=== PATIENT | male | born 1960 | race Caucasian/White ===

== ENCOUNTER 2017-03-07 11:51 | Inpatient (IN) | payer OTHER ==
[~2017-03-07] VITALS: Ht 172.7 cm; Wt 77.1 kg
[~2017-03-07 11:51] MED LIST: AMIODARONE200 MG PO; CARDIZEM CD 12120 MG PO; CORDARONE 200M200 MG PO; ECOTRIN81 MG PO; ELIQUIS5 MG PO
--- NOTE | 2017-03-07 12:02 | NUR ---
PT TO ED WITH C/O SUDDEN ONSET OF NAUSEA, SWEATING, RAPID HEART RATE WHILE EATING BREAKFAST. HX AFIB. HEART RATE 168 ON ARRIVAL TO ROOM. DENIES PAIN, C/O ANXIETY FEELING. DR POMPA IN TO [facility] UPON ARRIVAL TO ED.
--- NOTE | 2017-03-07 12:09 | ED CARDIAC/CP/PALPITATIONS ---
History of Present Illness General Chief Complaint: Chest Pain Stated Complaint: CHEST DISCOMFORT Source: patient Exam Limitations: no limitations Vital Signs & Intake/Output Vital Signs & Intake/Output Vital Signs Date Time Temp Pulse Resp B/P B/P Pulse O2 O2 Flow FiO2 Mean Ox Delivery Rate 03/07 1519 98.2 122 19 143/4 96 Room Air 03/07 1447 97.0 112 142/93 03/07 1300 112 150/74 03/07 1225 96 20 175/114 03/07 1205 96 20 175/114 96 Room Air Room Air Allergies Coded Allergies: meperidine (From DEMEROL) (Intermediate, VOMITING 03/07/17) Reconcile Medications Aspirin (Aspirin*) 81 MG TAB.CHEW 1 TAB PO DAILY HEART HEALTH (Reported) Diltiazem HCl (Diltiazem 24HR ER) 120 MG CAP.ER.24H 1 CAP PO DAILY HEART ( Reported) Triage Note: PT TO ED WITH C/O SUDDEN ONSET OF NAUSEA, SWEATING, RAPID HEART RATE WHILE EATING BREAKFAST. HX AFIB. Triage Nurses Notes Reviewed? yes Onset: Morning Duration: hour(s):, constant, continues in ED Quality/Severity: severe, RAPID HR Location: central HPI: Patient presents for evaluation of an onset of heart palpitations that began abruptly this morning. Patient has a prior history of atrial fibrillation and is currently taking diltiazem. He took an extra dose of the diltiazem trying to avoid coming to the hospital. He became sweaty prior to arrival and he was concerned about having another syncopal episode (he had one during his last episode of atrial fibrillation) and came to the emergency department. Past History Travel History Traveled to [place] past 21 day No Medical History Any Pertinent Medical History? 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 No Review of Systems Review of Systems Constitutional: Reports: no symptoms. EENTM: Reports: no symptoms. Respiratory: Reports: no symptoms. Cardiovascular: Reports: see HPI. GI: Reports: no symptoms. Genitourinary: Reports: no symptoms. Musculoskeletal: Reports: no symptoms. Skin: Reports: no symptoms. Neurological/Psychological: Reports: no symptoms. Hematologic/Endocrine: Reports: no symptoms. Immunologic/Allergic: Reports: no symptoms. All Other Systems: Reviewed and Negative Physical Exam Physical Exam Cardiovascular: SEE BELOW Comments: Gen.: Well-nourished, well-developed, no acute respiratory distress. Head: Normocephalic, atraumatic. Eyes: Normal inspection bilaterally Ears: Normal inspection bilaterally Nose: Normal inspection Throat/mouth : Moist mucosa Neck: Supple, full range of motion, no goiter Heart: Rapid and IRRegular rate and rhythm, no murmurs rubs or gallops Lungs: Clear to auscultation bilaterally with normal air entry Chest: Nontender Back: Normal range of motion Abdomen: Soft, nontender, nondistended, normal bowel sounds Extremities: Normal range of motion grossly, equal radial pulses, no cyanosis clubbing or edema Neurologic: Cranial nerves grossly intact, speech is clear Skin: warm and dry Psychiatric: Calm, cooperative, no apparent delusions or hallucinations Core Measures ACS in differential dx? Yes Severe Sepsis Present: No Septic Shock Present: No Progress Differential Diagnosis: CONDUCTION DISTURBANCE, VALVE DISEASE, HYPERTHYROIDISM, ELECTROLYTE ABNORMALITY, HOLIDAY HEART SYNDROME Plan of Care: Orders Procedure Date/time Status Admit to inpatient 03/07 1524 Active Add-on Test (ER Only) 03/07 1209 Active TROPONIN LEVEL 03/07 1153 Complete PROTHROMBIN TIME 03/07 1153 Complete MAGNESIUM 03/07 1153 Complete LIPID PANEL 03/07 1153 Complete ETHANOL 03/07 1153 Complete COMPREHENSIVE METABOLIC PANEL 03/07 1153 Complete CBC WITHOUT DIFFERENTIAL 03/07 1153 Complete EKG 03/07 1153 Active Current Medications Sig/Latrell Start time Last Medication Dose Stop Time Status Admin Diltiazem HCl 125 MG ONCE ONE 03/07 1215 AC 03/07 (Cardizem DRIP) 03/08 0044 1225 Sodium Chloride 100 ML (Normal Saline 0.9%) Laboratory Tests 03/07/17 1153: Anion Gap 8, Estimated GFR > 60, BUN/Creatinine Ratio 10.0, Glucose 153 H, Calcium 9.4, Magnesium 2.0, Total Bilirubin 1.1, AST 26, ALT 38, Alkaline Phosphatase 72, Troponin I < 0.01, Total Protein 6.4, Albumin 4.1, Globulin 2.3, Albumin/Globulin Ratio 1.8, Triglycerides 152 H, Cholesterol 226 H, LDL Cholesterol, Calc 131 H, HDL Cholesterol 65 H, Cholesterol/HDL Ratio 3, PT 10.5, INR 1.00, CBC w Diff NO MAN DIFF REQ, RBC 5.03, MCV 92.9, MCH 31.8 H, RDW 13.8, MPV 7.7, Gran % 59.8, Lymphocytes % 33.4, Monocytes % 5.5, Eosinophils % 0.8, Basophils % 0.5, Absolute Granulocytes 4.5, Absolute Lymphocytes 2.5, Absolute Monocytes 0.4, Absolute Eosinophils 0.1, Absolute Basophils 0, PUBS MCHC 34.2, Serum Alcohol < 10.0 Initial ED EKG: RAPID ATRIAL FIBRILLATION WITH HEART RATE IN THE 170'S Rhythm Strip: RAPID ATRIAL FIBRILLATION Comments: 03/07/2017 1:54:49 PM patient's heart rate improving after IV diltiazem. Patient 's case discussed with Dr. Coronel who feels the patient doesn't require acute anticoagulation. He will see this patient shortly. 03/07/2017 3:29:57 PM patient has been evaluated by Dr. Coronel and will be admitted to telemetry. Departure Departure Disposition: STILL A PATIENT Condition: Stable Clinical Impression Primary Impression: Rapid atrial fibrillation Referrals: ADE BASURTO MD (PCP/Family) Departure Forms: Customer Survey General Discharge Information Admission Note Spoke With: Jorge CORONEL MD Documentation of Exam: Documentation of any treatments & extenuating circumstances including Concerns Regarding Discharge (functional status, medication knowledge or non-compliance, living conditions, etc.) that warrant an admission rather than observation: Patient presents in a paroxysm rapid atrial fibrillation. He is typically in a normal sinus rhythm (he has had a previous episode of rapid atrial fibrillation) and is not anticoagulated currently. He is now on a Cardizem drip to control his excessively high heart rate. He needs continuous cardiac monitoring, possibility of tachycardia and subsequent hypotension. He requires continuation of the Cardizem drip along with clinical monitoring of physical examination and vital signs. He does not convert back to sinus rhythm within 24 hours he should be anticoagulated. His medications will require adjustment. Echocardiogram should be considered. I feel he'll require a multiple day hospitalization. Critical Care Note Critical Care Note Critical Care Time: 30-74 min
[2017-03-07 12:18] LABS: ABSOLUTE BASOPHIL COUNT 0 /CUMM (0.0-0.2); ABSOLUTE EOSINOPHIL COUNT 0.1 /CUMM (0.0-0.7); ABSOLUTE GRANULOCYTE CT 4.5 /CUMM (1.4-6.5); ABSOLUTE LYMPH COUNT 2.5 /CUMM (1.2-3.4); ABSOLUTE MONOCYTE COUNT 0.4 /CUMM (0.10-0.60); BASOPHIL % 0.5 % (0.0-2.0); EOSINOPHIL % 0.8 % (0-5); GRANULOCYTE % 59.8 % (42.2-75.2); HEMATOCRIT 46.7 % (42-52); MEAN CORPUSCULAR HGB 31.8 PG (27.0-31.0); MEAN CORPUSCULAR HGB CONC 34.2 G/DL (33.0-37.0); MEAN CORPUSCULAR VOLUME 92.9 FL (80.0-94.0); MEAN PLATELET VOLUME 7.7 FL (7.4-10.4); PLATELET COUNT 292 /CUMM (130-400); RBC DISTRIBUTION WIDTH 13.8 % (11.5-14.5); RED BLOOD CELL CT 5.03 /CUMM (4.70-6.10); WHITE BLOOD CELL COUNT 7.5 /CUMM (4.8-10.8)
[2017-03-07 12:26] LABS: PT 10.5 SEC (9.4-12.5)
[2017-03-07] MEDS ORDERED: ASPIRIN81 M4 PO (12:57)
[2017-03-07] MEDS ORDERED: DILTIAZEM 24HR120 MG PO (12:57)
--- NOTE | 2017-03-07 16:57 | NUR ---
PT PROVIDED DINNER TRAY. CHEMISTRY PHYSICS TEACHER IN TO ASSESS [PT.NAD NOTED. HR IRREG 94-106BPM. IV CARDIZEM DRIP CONTIUES AT 10/HR.
--- NOTE | 2017-03-07 17:37 | History & Physical ---
General Information and HPI MD Statement: I have seen and personally examined BARTOLO PLASCENCIA and documented this H&P. The patient is a 57 year old M who presented with a patient stated chief complaint of racing of heart. Source of Information: patient, family Exam Limitations: no limitations History of Present Illness: This is a 57-year-old male with past medical history significant for paroxysmal atrial fibrillation ON CARDIZEM and not on anticoagulants presented to [facility] emergency department this afternoon with chief complaint of palpitations since morning. Patient presents for evaluation of onset of heart palpitations that began abruptly this morning. Patient has a prior history of atrial fibrillation and is currently taking diltiazem. He took an extra dose of the diltiazem trying to avoid coming to the hospital. He became sweaty prior to arrival and he was concerned about having another syncopal episode (he had one during his last episode of atrial fibrillation) and came to the emergency department. Patient reports being nauseous and sweaty during this episode. Denies any chest pain, short of breath. Denies any dizziness, lightheadedness, syncopal attack. Patient was diagnosed with atrial fibrillation in November 2014. He was found to be in paroxysmal atrial fibrillation, started on Cardizem drip after which his rhythm came to normal. He was discharged on Cardizem 120 mg and baby aspirin. He was never on anticoagulants. Nuclear stress test and echocardiogram were normal. He follows Dr. Sourav kaur as an outpatient Denies any shortness of breath, fever, chills, chest pain, headache, weakness or sensory changes, numbness or tingling sensation, nausea, vomiting, abdominal pain, change in bladder or bowel habits. Quit smoking and year echo. One pack per day for 50 years. Alcoholic 6 beers every day Denies illicit drug abuse Last echocardiogram-October 2014- Left ventricular cavity size normal. Left ventricular wall thickness mildly increased. No obvious regional wall motion abnormalities. Left ventricular ejection fraction is estimated at 55 %. Normal right ventricular size and function. Mild left atrial dilatation. Lipomatous hypertrophy of the interatrial septum. No pericardial effusion. Allergies/Medications Allergies: Coded Allergies: meperidine (From DEMEROL) (Intermediate, VOMITING 03/07/17) Home Med list Aspirin (Aspirin*) 81 MG TAB.CHEW 1 TAB PO DAILY HEART HEALTH (Reported) Diltiazem HCl (Diltiazem 24HR ER) 120 MG CAP.ER.24H 1 CAP PO DAILY HEART ( Reported) Compliance With Home Meds: GOOD Past History Travel History Traveled to [place] past 21 day No Medical History Neurological: dizziness EENT: NONE Cardiovascular: AFIB Respiratory: NONE Gastrointestinal: NONE Hepatic: NONE Renal: NONE Musculoskeletal: NONE Psychiatric: NONE Endocrine: NONE Blood Disorders: NONE Cancer(s): NONE 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 EENTM: Denies: blurred vision, double vision. Cardiovascular: Reports: palpitations. Denies: chest pain, edema, orthopena, peripheral edema, syncope. Respiratory: Denies: cough, hemoptysis, orthopnea, short of breath, sputum production, stridor, wheezing. GI: Denies: abdominal pain, bloating, constipation, diarrhea, bloody stool, changes in stool, vomiting. Genitourinary: Denies: dysuria, frequency, hematuria, hesitation. Musculoskeletal: Denies: back pain, gout, joint pain. Neurological/Psychological: Denies: anxiety, ataxia, confusion, depressed, dementia, emotional problems, numbness, paresthesia. Exam & Diagnostic Data Last 24 Hrs of Vital Signs/I&O Vital Signs Date Time Temp Pulse Resp B/P B/P Pulse O2 O2 Flow FiO2 Mean Ox Delivery Rate 03/07 1545 98.4 103 18 141/72 97 Room Air 03/07 1519 98.2 122 19 143/64 96 Room Air 03/07 1447 97.0 112 142/93 03/07 1300 112 150/74 03/07 1225 96 20 175/114 03/07 1205 96 20 175/114 96 Room Air Room Air Intake & Output 03/07 1600 03/07 0800 03/07 0000 Intake Total 1000 Output Total 800 Balance 200 Intake, IV 1000 Output, Urine 800 Patient 77.111 kg Weight Weight Reported by Patient Measurement Method Physical Exam General Appearance Alert, Oriented X3, Cooperative, No Acute Distress Skin No Rashes, No Breakdown HEENT Atraumatic, PERRLA, EOMI, Mucous Membr. moist/pink Neck Supple, No JVD, No thryomegaly Lymphatic Cervical nl Cardiovascular Normal S1, Normal S2, irregular Lungs Normal Air Movement Abdomen Normal Bowel Sounds, Soft, No Tenderness Neurological Strength at 5/5 X4 Ext, Normal Tone, Sensation Intact, Cranial Nerves 3-12 NL Extremities No Clubbing, No Cyanosis, No Edema Last 24 Hrs of Labs/Mart: Laboratory Tests 03/07/17 1153: Anion Gap 8, Estimated GFR > 60, BUN/Creatinine Ratio 10.0, Glucose 153 H, Calcium 9.4, Phosphorus 2.4 L, Magnesium 2.0, Total Bilirubin 1.1, AST 26, ALT 38, Alkaline Phosphatase 72, Troponin I < 0.01, Total Protein 6.4, Albumin 4.1, Globulin 2.3, Albumin/Globulin Ratio 1.8, Triglycerides 152 H, Cholesterol 226 H, LDL Cholesterol, Calc 131 H, HDL Cholesterol 65 H, Cholesterol/HDL Ratio 3, TSH 1.670, Free T4 1.12, PT 10.5, INR 1.00, CBC w Diff NO MAN DIFF REQ, RBC 5.03 , MCV 92.9, MCH 31.8 H, RDW 13.8, MPV 7.7, Gran % 59.8, Lymphocytes % 33.4, Monocytes % 5.5, Eosinophils % 0.8, Basophils % 0.5, Absolute Granulocytes 4.5, Absolute Lymphocytes 2.5, Absolute Monocytes 0.4, Absolute Eosinophils 0.1, Absolute Basophils 0, PUBS MCHC 34.2, Serum Alcohol < 10.0 Diagnostic Data EKG Results EKG showed atrial fibrillation with rapid ventricular response, rate 171, right ventricle hypertrophy, QTC 479, no acute ST-T wave changes Assessment/Plan Assessment: This is a 57-year-old male with past medical history significant for paroxysmal atrial fibrillation ON CARDIZEM and not on anticoagulants presented to [facility] emergency department this afternoon with chief complaint of palpitations since morning. Vitals on admission-afebrile, heart rate 171, respiratory rate 20, blood pressure 175/110 after which improved to 143/93, saturating at 96 on room air pertinent labs on admission CBCs normal BEP normal Liver function tests normal First set of troponin-0.01 Lipid panel-152, 2026, 131, 65 Thyroid function tests normal PT, INR normal EKG in the emergency room showed atrial fibrillation with rapid ventricular response, rate 171, right ventricle hypertrophy, QTC 479, no acute ST-T wave changes. * Patient was given IV Cardizem push 5 mg after which heart rate came down to 120, research/program director was consulted and he was started on IV Cardizem drip. assessment and plan 1. Paroxysmal atrial fibrillation with rapid ventricular rate Patient presented to emergency department with palpitations. EKG in the emergency room showed atrial fibrillation with rapid ventricular response, rate 171. Patient was given IV Cardizem push 5 mg after which heart rate came down to 120, research/program director was consulted and he was started on IV Cardizem drip. * Admitted to telemetry floor for further management of atrial fibrillation * continuous telemetry monitoring * monitor vitals closely every shift * Patient is in paroxysmal atrial fibrillation with rapid ventricular rate most possibly from alcohol and smoking. * Patient is hemodynamically stable * Electrolytes were normal * Thyroid function tests were normal * Rate control-IV Cardizem 10 mL per hour. * CHADSVAS SCORE- 0 * continue to monitor him on telemetry for next 24 hours, if he doesn't go back to sinus rhythm-we will plan for anticoagulation and cardioversion * Echocardiogram to rule out any structural or wall motion abnormalities and tachycardia mediated cardiomyopathy. * Follow cardiology recommendations * Will continue baby aspirin * First set of troponin and EKG negative for ST-T wave changes * Will follow up serial troponins and EKGs * Will follow-up echocardiogram DVT prophylaxis subcutaneous Lovenox Full code Regular diet pain pathway As Ranked By This Provider Problem List: 1. Atrial fibrillation with rapid ventricular response 2. Full code status Core Measures/Miscellaneous Acute Coronary Syndrome ACS Diagnosis: No Cerebrovascular Accident CVA/TIA Diagnosis: No Congestive Heart Failure CHF Diagnosis: No VTE (View Protocol) VTE Risk Factors: Age > 40 No [facility] VTE prophylaxis d/t: No contraindications No VTE Pharm Prophylaxis d/t: No contraindications VTE Diagnosis: No VTE Type: NONE VTE Confirmed by (Test): NONE Sepsis (View Protocol) Severe Sepsis Present: No Septic Shock Septic Shock Present: No Miscellaneous Documentation Attending Case Discussed With: Jorge CORONEL MD Primary Care Physician: ADE BASURTO MD Patient sees these Specialists cardiology Level of Patient Care: Telemetry
--- NOTE | 2017-03-07 18:03 | Cons- Cardiology ---
General Information and HPI Consulting Request Date of Consult: 03/07/17 Requested By: Jorge CORONEL MD Reason for Consult: Atrial fibrillation Source of Information: patient, family Exam Limitations: no limitations History of Present Illness: The patient is a 57 year old male who is followed by Dr. Bee for his cardiac issues. He had a previous episode of PAF in 2014 which reverted to NSR spontaneously and he has been stable on Cardizem and ASA since that time. This morning he developed palpitations He noted associated diaphoresis but denies any other associated symptoms. In the ER he was noted to be in atrial fibrillation with a rapid ventricular response. After being started on IV cardizem, his rate and symptoms improved. He denies any other recent illness or other symptoms. No obvious precipitating factors. Allergies/Medications Allergies: Coded Allergies: meperidine (From DEMEROL) (Intermediate, VOMITING 03/07/17) Home Med List: Aspirin (Aspirin*) 81 MG TAB.CHEW 1 TAB PO DAILY HEART HEALTH (Reported) Diltiazem HCl (Diltiazem 24HR ER) 120 MG CAP.ER.24H 1 CAP PO DAILY HEART ( Reported) Current Medications: Current Medications Sig/Latrell Start time Last Medication Dose Route Stop Time Status Admin Acetaminophen 650 MG Q6P PRN 03/07 1715 AC PO Aspirin 0 .STK-MED ONE 03/07 1803 DC PO Aspirin 81 MG DAILY 03/07 1653 AC PO Diltiazem HCl 5 MG ONCE ONE 03/07 1215 DC 03/07 IV PUSH 03/07 1216 1225 Diltiazem HCl 125 MG ONCE ONE 03/07 1215 AC 03/07 Sodium Chloride 100 ML IV 03/08 0044 1225 Diltiazem HCl 0 .STK-MED ONE 03/07 1213 DC IV Diltiazem HCl 0 .STK-MED ONE 03/07 1213 DC .ROUTE Enoxaparin Sodium 0 .STK-MED ONE 03/07 1804 DC SC Enoxaparin Sodium 40 MG DAILY 03/07 1705 AC SC Ibuprofen 600 MG Q6P PRN 03/07 1715 AC PO Oxycodone/ 2 TAB Q6P PRN 03/07 1715 AC Acetaminophen PO Past History Travel History Traveled to [place] past 21 day No Medical History Neurological: dizziness EENT: NONE Cardiovascular: AFIB Respiratory: NONE Gastrointestinal: NONE Hepatic: NONE Renal: NONE Musculoskeletal: NONE Psychiatric: NONE Endocrine: NONE Blood Disorders: NONE Cancer(s): 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 Surgical History Surgical History: non-contributory Family History Relations & Conditions If Any: FATHER MOTHER Relation not specified for: FH ischemic heart disease FH: breast cancer Psychosocial History Smoking Status: Former Smoker ETOH Use: occasional use Illicit Drug Use: denies illicit drug use Exam & Diagnostic Data Vital Signs and I&O Vital Signs Date Time Temp Pulse Resp B/P B/P Pulse O2 O2 Flow FiO2 Mean Ox Delivery Rate 03/07 1545 98.4 103 18 141/72 97 Room Air 03/07 1519 98.2 122 19 143/64 96 Room Air 03/07 1447 97.0 112 142/93 03/07 1300 112 150/74 03/07 1225 96 20 175/114 03/07 1205 96 20 175/114 96 Room Air Room Air Intake & Output 03/07 1600 03/07 0800 / 0000 03/06 1600 03/06 0800 03/06 0000 Intake Total 1000 Output Total 800 Balance 200 Intake, IV 1000 Output, Urine 800 Patient 170 lb Weight Weight Reported by Patient Measurement Method Physical Exam: WD, WN, WM in NAD; A and O x3 HEENT: normal Neck: NOrmal JVP, Carotids normal bilaterally Chest: Clear bilaterally Heart: Irregular tachycardia; S1, S2, 1/6 systolic murmur Abdomen: normal Ext: NOrmal Vascular NOrmal Labs/Mart Results: Laboratory Tests 03/07 1153 Chemistry Sodium (137 - 145 mmol/L) 139 Potassium (3.5 - 5.1 mmol/L) 4.1 Chloride (98 - 107 mmol/L) 108 H Carbon Dioxide (22 - 30 mmol/L) 23 Anion Gap (5 - 16) 8 BUN (9 - 20 mg/dL) 9 Creatinine (0.7 - 1.2 mg/dL) 0.9 Estimated GFR (>60 ml/min) > 60 BUN/Creatinine Ratio (7 - 25 %) 10.0 Glucose (65 - 99 mg/dL) 153 H Calcium (8.4 - 10.2 mg/dL) 9.4 Phosphorus (2.5 - 4.5 mg/dL) 2.4 L Magnesium (1.6 - 2.3 mg/dL) 2.0 Total Bilirubin (0.2 - 1.3 mg/dL) 1.1 AST (17 - 59 U/L) 26 ALT (21 - 72 U/L) 38 Alkaline Phosphatase (< 127 U/L) 72 Troponin I (<0.11 ng/ml) < 0.01 Total Protein (6.3 - 8.2 g/dL) 6.4 Albumin (3.5 - 5.0 g/dL) 4.1 Globulin (1.9 - 4.2 gm/dL) 2.3 Albumin/Globulin Ratio (1.1 - 2.2 %) 1.8 Triglycerides (<150 mg/dL) 152 H Cholesterol (< 200 MG/DL) 226 H LDL Cholesterol, Calc (65 - 129 mg/dL) 131 H HDL Cholesterol (40 - 60 mg/dL) 65 H Cholesterol/HDL Ratio (0.00 - 4.88 %) 3 TSH (0.270 - 4.200 uIU/mL) 1.670 Free T4 (0.64 - 1.79 ng/dL) 1.12 Coagulation PT (9.4 - 12.5 SEC) 10.5 INR (0.90 - 1.17) 1.00 Hematology CBC w Diff NO MAN DIFF REQ WBC (4.8 - 10.8 /CUMM) 7.5 RBC (4.70 - 6.10 /CUMM) 5.03 Hgb (14.0 - 18.0 G/DL) 16.0 Hct (42 - 52 %) 46.7 MCV (80.0 - 94.0 FL) 92.9 MCH (27.0 - 31.0 PG) 31.8 H RDW (11.5 - 14.5 %) 13.8 Plt Count (130 - 400 /CUMM) 292 MPV (7.4 - 10.4 FL) 7.7 Gran % (42.2 - 75.2 %) 59.8 Lymphocytes % (20.5 - 51.1 %) 33.4 Monocytes % (1.7 - 9.3 %) 5.5 Eosinophils % (0 - 5 %) 0.8 Basophils % (0.0 - 2.0 %) 0.5 Absolute Granulocytes (1.4 - 6.5 /CUMM) 4.5 Absolute Lymphocytes (1.2 - 3.4 /CUMM) 2.5 Absolute Monocytes (0.10 - 0.60 /CUMM) 0.4 Absolute Eosinophils (0.0 - 0.7 /CUMM) 0.1 Absolute Basophils (0.0 - 0.2 /CUMM) 0 PUBS MCHC (33.0 - 37.0 G/DL) 34.2 Toxicology Serum Alcohol (<10 MG/DL) < 10.0 Diagnostic Data EKG Results AF wtih rapid ventricular rate CXR Results FINDINGS: The lungs are symmetrically expanded and clear without focal airspace opacity. No evidence of pneumothorax, pleural effusion, or pulmonary edema. The cardiomediastinal contour is unremarkable. No acute osseous findings are seen. IMPRESSION: No acute cardiopulmonary findings. Assessment/Plan Assessment/Plan Assessment: 1. Atrial fibrillation with rapid ventricular rate - 57 year old male with new onset atrial fibrillation and prior history of PAF. CHADSVAS score 0. No obvious precipitating factors. 2. HLD 3. Murmur Recommendations: - Admit to telemetry - IV cardizem for rate control - No anticoagulation for now. - Echocardiogram - Hopefully the patient will spontaneously revert to NSR overnight as previously - If reverts to NSR, convert to oral meds tomorrow as per Dr. Cadet - If remains in atrial fibrillation, further plans in the AM - Check all labs including TSH and troponin x 2. - Further plans in AM Consult Acknowledgment - Thank you for your consult request.
--- NOTE | 2017-03-07 18:05 | NUR ---
BLOOD DRAWN AND SENT TO LAB ([facility])
--- NOTE | 2017-03-07 18:13 | NUR ---
PT MEDICATED WITH ASA 81MG AND LOVENOX 40MG SC. PT OFFERS NO COMPLAINTS AT THIS TIME. INFORMED WAITING PERFORMED, PT AWARE THAT HE WILL BE A HOLD OVERNIGHT IN THE ER, PT VERBALIZES UNDERSTANDING.
--- NOTE | 2017-03-07 19:37 | NUR ---
PT ASSISTED TO HOSPITAL BED. CONTINUES ON CM NOTED TO BE A FIB IN THE 60'S-70'S. PT OFFERS NO COMPLAINTS. FAMILY AT BEDSIDE AT THIS TIME.
--- NOTE | 2017-03-07 22:10 | NUR ---
PT RESTING QUIETLY IN BED. FAMILY WENT HOME. PT PLACED ON MONITOR. NAD NOTED. VSS. CARDIZEM DRIP CONTINUES TO INFUSE AT 210/HR. WILL CONTINUE TO MONITOR AND AWAITINGBED FOR ADMISSION.
--- NOTE | 2017-03-07 23:10 | NUR ---
ASSUMED PRIMARY CARE OF PT. PT AWAKE/ALERT WITH EASY WOB. DENIES CP/SOB AT THIS TIME. HR 55-60 ON CM. CARDIZEM DRIP CONT TO INFUSE AT 10ML/HR REPORTED BY OFFGOING RN. PT WILL BE HOLD IN ED OVERNIGHT.
--- NOTE | 2017-03-07 23:50 | NUR ---
HOUSE STAFF PAGED R/T CARDIZEM DRIP RATE AND HR 54 WHILE SLEEPING. DILTIAZEM REDUCED TO 5 MG/MIN
--- NOTE | 2017-03-08 00:08 | NUR ---
CARDIZEM DRIP STOPPED PER MD MUIJCA. HR 60 ON CM. PT SLEEPING SOUNDLY, WHEN AWAKENED CONT TO DENY CP/SOB.
--- NOTE | 2017-03-08 00:30 | NUR ---
EKG DONE AND SHOWN TO MD SOTO DRAWN AND SENT TO LAB
--- NOTE | 2017-03-08 01:24 | NUR ---
HR REMAINS 50'S ON CM. PT ASLEEP WITH EASY WOB.
--- NOTE | 2017-03-08 02:18 | NUR ---
SLEEPING SOUNDLY. HR 64 ON CM. EASY WOB NOTED.
--- NOTE | 2017-03-08 03:52 | NUR ---
PATIENT CONTINUES TO SLEEP AT THIS TIME, AWAITING 0600 EKG AND LABS. PATIENT HR:52-60 ON MONITOR W/ PRESENCE OF P-WAVES.
--- NOTE | 2017-03-08 04:10 | NUR ---
NO REPEAT TROP/ EKG ORDERED, OKAY PER MD MARIOLA FAJARDO D/T 3 NEGATIVE TROPONINS PRIOR. PATIENT D/T HAVE OTHER AM BLOODWORK AT 0600.
--- NOTE | 2017-03-08 05:27 | NUR ---
IPOC INITIATED AND UTD. PATIENT CONTINUES TO SLEEP AT THIS TIME W/ REGULAR RESPIRATIONS NOTED.
--- NOTE | 2017-03-08 05:47 | NUR ---
AWOKE PATIENT FROM SOUND SLEEP TO OBTAIN VS AND AM LABS. PATIENT DENIES ANY CP. HR:57 NSR W/ PRESENCE OF P-WAVES ON MONITOR, REMAINS ALERT AND ORIENTED, INDEPENDENT.
--- NOTE | 2017-03-08 05:52 | NUR ---
BLOODWORK OBTAINED AND SENT TO LAB (LAV, SST X2).
[2017-03-08 06:01] LABS: ABSOLUTE BASOPHIL COUNT 0 /CUMM (0.0-0.2); ABSOLUTE EOSINOPHIL COUNT 0.1 /CUMM (0.0-0.7); ABSOLUTE GRANULOCYTE CT 3.1 /CUMM (1.4-6.5); ABSOLUTE LYMPH COUNT 2.6 /CUMM (1.2-3.4); ABSOLUTE MONOCYTE COUNT 0.3 /CUMM (0.10-0.60); BASOPHIL % 0.4 % (0.0-2.0); EOSINOPHIL % 2.3 % (0-5); GRANULOCYTE % 50.8 % (42.2-75.2); MEAN CORPUSCULAR HGB 31.8 PG (27.0-31.0); MEAN CORPUSCULAR HGB CONC 34.4 G/DL (33.0-37.0); MEAN CORPUSCULAR VOLUME 92.5 FL (80.0-94.0); MEAN PLATELET VOLUME 7.3 FL (7.4-10.4); PLATELET COUNT 244 /CUMM (130-400); RBC DISTRIBUTION WIDTH 13.7 % (11.5-14.5); RED BLOOD CELL CT 4.42 /CUMM (4.70-6.10); WHITE BLOOD CELL COUNT 6.2 /CUMM (4.8-10.8)
--- NOTE | 2017-03-08 06:03 | NUR ---
IPOC CONTINUED AND UTD.
--- NOTE | 2017-03-08 06:04 | NUR ---
ALPS CUFFS REMAIN IN PLACE. PATIENT EDUCATED ON USE/ PURPOSE OF ALPS CUFFS, AGREEABLE THOUGH REPORTING "THAN I DON'T WANT ANY HEPARIN SHOTS." PATIENT DENIES ANY PAIN, DENIES ANY COMPLAINTS.
[2017-03-08 06:08] LABS: HEMATOCRIT 40.9 % (42-52)
--- NOTE | 2017-03-08 06:59 | NUR ---
ASSUMED CARE AT THIS TIME, PT AWAKE AND ALERT, NSR ON MONITOR WITH HR 66. DENIES CP/SOB.
[2017-03-08 07:02] VITALS: BP 116/71
--- NOTE | 2017-03-08 07:17 | PN- Housestaff ---
Subjective Follow-up For: Afib with RVR Complaints: no complaints Tele-Events Since Last Visit: R 50-70's. Patient revereted to [facility] around midnight. Subjective: Patient seen and exmained at bedside. He offers no complaints, denies chest pain , shortness of breath, palpitations. Eager on going home. Review of Systems Constitutional: Denies: chills, fever, weakness. EENTM: Denies: visual changes. Cardiovascular: Denies: chest pain, orthopena, palpitations, peripheral edema, syncope. Respiratory: Denies: cough, orthopnea, short of breath, sputum production. Gastrointestinal: Denies: abdominal pain, constipation, diarrhea, nausea, vomiting. Genitourinary: Reports: no symptoms. Musculoskeletal: Reports: no symptoms. Neurological/Psychological: Denies: headache, numbness, tingling, tremors. Objective Last 24 Hrs of Vital Signs/I&O Vital Signs Date Time Temp Pulse Resp B/P B/P Pulse O2 O2 Flow FiO2 Mean Ox Delivery Rate 03/08 0705 97.9 56 18 116/71 96 Room Air 03/08 0702 97.9 56 18 116/71 96 Room Air 03/08 0546 98.0 57 18 122/91 97 Room Air 03/08 0037 97.2 62 18 126/82 95 Room Air 03/07 2226 98.0 66 20 125/76 98 Room Air 03/07 1939 98.5 63 18 122/82 96 Room Air Room Air 03/07 1545 98.4 103 18 141/72 97 Room Air 03/07 1519 98.2 122 19 143/64 96 Room Air 03/07 1447 97.0 112 142/93 03/07 1300 112 150/74 03/07 1225 96 20 175/114 03/07 1205 96 20 175/114 96 Room Air Room Air Intake & Output 03/08 0800 03/08 0000 03/07 1600 Intake Total 1000 Output Total 800 Balance 200 Intake, IV 1000 Output, Urine 800 Patient 170 lb 170 lb Weight Weight Reported by Patient Reported by Patient Measurement Method Physical Exam General Appearance: Alert, Oriented X3, Cooperative, No Acute Distress Skin Temp/Moisture Exam: Warm/Dry HEENT: Atraumatic, PERRLA, EOMI, Mucous Membr. moist/pink Neck: Supple, No JVD, No thryomegaly, +2 Carotid Pulse wo Bruit, No LAD Cardiovascular: Regular Rate, Normal S1, Normal S2, No Murmurs Lungs: Clear to Auscultation, Normal Air Movement Abdomen: Normal Bowel Sounds, Soft, No Tenderness, No Hepatospenomegaly, No Masses Neurological: Normal Speech, Strength at 5/5 X4 Ext, Normal Tone, Sensation Intact, Cranial Nerves 3-12 NL, Reflexes 2+ Extremities: No Clubbing, No Cyanosis, No Edema, Normal Pulses, No Tenderness/ Swelling Vascular: Normal Pulses, Pulses Symmetrical Current Medications: Current Medications Sig/Latrell Start time Last Medication Dose Route Stop Time Status Admin Acetaminophen 650 MG Q6P PRN 03/07 171 AC PO Aspirin 0 .STK-MED ONE 03/07 1803 DC PO Aspirin 81 MG DAILY 03/07 1653 AC 03/07 PO 1813 Diltiazem HCl 5 MG ONCE ONE 03/07 1215 DC 03/07 IV PUSH 03/07 1216 1225 Diltiazem HCl 125 MG ONCE ONE 03/07 1215 DC 03/07 Sodium Chloride 100 ML IV 03/08 0044 1225 Diltiazem HCl 0 .STK-MED ONE 03/07 1213 DC IV Diltiazem HCl 0 .STK-MED ONE 03/07 1213 DC .ROUTE Enoxaparin Sodium 0 .STK-MED ONE 03/07 1804 DC SC Enoxaparin Sodium 40 MG DAILY 03/07 1705 AC 03/07 SC 1813 Ibuprofen 600 MG Q6P PRN 03/07 171 AC PO Oxycodone/ 2 TAB Q6P PRN 03/07 1715 AC Acetaminophen PO Last 24 Hrs of Lab/Mart Results Last 24 Hrs of Labs/Mics: Laboratory Tests 03/08/17 0553: Anion Gap 6, Estimated GFR > 60, BUN/Creatinine Ratio 13.3, CBC w Diff NO MAN DIFF REQ, RBC 4.42 L, MCV 92.5, MCH 31.8 H, RDW 13.7, MPV 7.3 L, Gran % 50.8, Lymphocytes % 42.3, Monocytes % 4.2, Eosinophils % 2.3, Basophils % 0.4, Absolute Granulocytes 3.1, Absolute Lymphocytes 2.6, Absolute Monocytes 0.3, Absolute Eosinophils 0.1, Absolute Basophils 0, PUBS MCHC 34.4 03/08/17 0030: Troponin I < 0.01 03/07/17 1804: Troponin I < 0.01 03/07/17 1153: Anion Gap 8, Estimated GFR > 60, BUN/Creatinine Ratio 10.0, Glucose 153 H, Calcium 9.4, Phosphorus 2.4 L, Magnesium 2.0, Total Bilirubin 1.1, AST 26, ALT 38, Alkaline Phosphatase 72, Troponin I < 0.01, Total Protein 6.4, Albumin 4.1, Globulin 2.3, Albumin/Globulin Ratio 1.8, Triglycerides 152 H, Cholesterol 226 H, LDL Cholesterol, Calc 131 H, HDL Cholesterol 65 H, Cholesterol/HDL Ratio 3, TSH 1.670, Free T4 1.12, PT 10.5, INR 1.00, CBC w Diff NO MAN DIFF REQ, RBC 5.03 , MCV 92.9, MCH 31.8 H, RDW 13.8, MPV 7.7, Gran % 59.8, Lymphocytes % 33.4, Monocytes % 5.5, Eosinophils % 0.8, Basophils % 0.5, Absolute Granulocytes 4.5, Absolute Lymphocytes 2.5, Absolute Monocytes 0.4, Absolute Eosinophils 0.1, Absolute Basophils 0, PUBS MCHC 34.2, Serum Alcohol < 10.0 Orders EKG Findings: On admission Afib with RVR HR: 170, no ST-T chanegs. Assessment/Plan Assessment: 57-year-old male with past medical history significant for paroxysmal atrial fibrillation on cardizem and not on anticoagulants presented to [facility] emergency department this afternoon with chief complaint of palpitations since morning. Vitals on admission, BP: 175/114, tachycardic to 170's, RR: 20, saturaing 96% on RA. Labs pertinent for normal H&H: 16.0/46.7, platelet [id number], WBC: 7500. Serum chemistries showed NA: 139, K: 4.1, BUN: 108, bun: 9, Cr: 0.9, low phos: 2.4, 1st set of trop < 0.01. He was given an IV cardizem push and started on cardizem drip, with subsequent conversion to NSR overnight, after which the drip was switched off. Assessment and Plan: #Afib with RVR Most likely 2/2 stress Will resume his home dose of Cardizem 120mg ER. His CHADSVASC is 0, and so will oshea off starting him on AC for now. Echo pending. Can get a echocardigram as an OP. F/U recs #Dyslipidemia - His ASCVD is 6.0% - Advised diet adn lifestyle modification - Will need a reepeat lipid panel in 3-6 months, and if still no improvement,w ill cosniderstarting him on moderate intensity statin. - DVT Prophylaxis - Lovenox 40mg SC - Diet: - Heart healthy - Code - Full Code Problem List: 1. Atrial fibrillation with rapid ventricular response Pain Ratin Pain Location: n/a Pain Goal: Remain pain free Pain Plan: tyelnol Tomorrow's Labs & Rationales: n/a
[2017-03-08 07:19] VITALS: BP 116/71
--- NOTE | 2017-03-08 07:19 | NUR ---
PER NOTES PT HAS HISTORY OF HEAVY ETOH USE, CIWA 0 AT THIS TIME. NO VISIBLE TREMORS NOTED AND PT DENIES TREMORS, WILL CONTINUE TO MONITOR
--- NOTE | 2017-03-08 07:26 | NUR ---
FOOD TTRAY ORDERED
--- NOTE | 2017-03-08 07:48 | NUR ---
HOUSE STAFF AT BEDSIDE, MANUAL BP 108/74 AT THIS TIME NSR ON MONITOR HR 60, PT STATES THAT HE WOULD LIKE TO BE DISCHARGED HOME
[2017-03-08 08:07] VITALS: BP 108/74
--- NOTE | 2017-03-08 08:37 | NUR ---
PT PROVIDED WITH FOOD TRAY
--- NOTE | 2017-03-08 09:03 | NUR ---
PHARMACY CALLED FOR 10AM MEDS AT THIS TIME. PT REMAINS ALERT AND ORIENTED , RESTING IN BED WATCHING TV AT THIS TIME. PT NSR ON MONITOR WITH HR 66, O2 SAT 96 % ON RA. DENIES CP/SOB, PT STILL STATES THAT HE FEELS FINE AND WOULD LIKE TO GO HOME. HOUSE STAFF IS AWARE.
[2017-03-08 09:05] VITALS: BP 151/89
[2017-03-08 09:09] VITALS: BP 151/89
--- NOTE | 2017-03-08 09:11 | NUR ---
PT UP TO BATHROOM , AMBULATED WITH STEADY GAIT.
--- NOTE | 2017-03-08 09:27 | NUR ---
UX UI DESIGNER AT BEDSIDE AND STATES THAT PT WILL BE DISCHARGED HOME FROM THE ER
--- NOTE | 2017-03-08 09:51 | NUR ---
PT MEDICATED WITH CARDIZEM AND ASPRIN, PT REFUSED LOVENOX SHOT AT THIS TIME. WAITING ON HOUSE STAFF TO COME DOWN TO DISCHARGE PATIENT. REMAINS NSR ON MONITOR HR 66, DENIES CP/SOB
--- NOTE | 2017-03-08 10:18 | PN- Cardiology ---
Subjective Subjective: The patient is awake, alert The events of the last 24 hours as well as telemetry were reviewed. The patient reverted to normal sinus rhythm overnight Review of Systems: The review of systems is negative for chest pains, palpitations nor lightheadedness. The remainder of the 14 point review of systems is noncontributory with the exception of above. Objective Vital Signs and I&Os Vital Signs Date Time Temp Pulse Resp B/P B/P Pulse O2 O2 Flow FiO2 Mean Ox Delivery Rate 03/08 0909 97.5 84 16 151/89 96 Room Air 07/10 0905 96.0 84 16 151/89 07/10 0807 97.5 60 18 108/74 96 Room Air 07/10 0748 70 108/74 07/10 0719 97.9 56 18 116/71 07/10 0705 97.9 56 18 116/71 96 Room Air /10 0702 97.9 56 18 116/71 96 Room Air 07/10 0546 98.0 57 18 122/91 97 Room Air 07/10 0037 97.2 62 18 126/82 95 Room Air 07/09 2226 98.0 66 20 125/76 98 Room Air 07/09 1939 98.5 63 18 122/82 96 Room Air Room Air 07/09 1545 98.4 103 18 141/72 97 Room Air 07/09 1519 98.2 122 19 143/64 96 Room Air 07/09 1447 97.0 112 142/93 07/09 1300 112 150/74 07/09 1225 96 20 175/114 07/09 1205 96 20 175/114 96 Room Air Room Air Intake & Output 03/08 1600 10 0800 07/10 0000 /09 1600 07/09 0800 07/09 0000 Intake Total 1000 Output Total 260 800 Balance -260 200 Intake, IV 1000 Output, Urine 260 800 Patient 170 lb 170 lb Weight Weight Reported by Patient Reported by Patient Measurement Method Physical Exam: General: Nontoxic, no apparent distress. HEENT: Sclera and conjunctiva within normal limits, without xanthelasmas. Neck: Carotids 2+ without bruits. Respiratory: Clear to auscultation, air movement is good, without accessory respiratory muscle use. Heart: Regular rate and rhythm, without murmurs, without JVD. Abdomen: Soft, nontender, no masses, normoactive bowel sounds. Extremities: Without clubbing, cyanosis, without edema. Neuro: Nonfocal exam, strength, 5 out of 5 Skin: Within normal limits without lesions. Psych: Mood and affect: Normal Current Medications: Current Medications Sig/Latrell Start time Last Medication Dose Route Stop Time Status Admin Acetaminophen 650 MG Q6P PRN 03/07 1715 AC PO Aspirin 0 .STK-MED ONE 03/08 0954 DC PO Aspirin 0 .STK-MED ONE 03/07 1803 DC PO Aspirin 81 MG DAILY 03/07 1653 AC 03/08 PO 0950 Diltiazem HCl 120 MG DAILY 03/08 1000 AC 03/08 PO 0950 Diltiazem HCl 5 MG ONCE ONE 03/07 1215 DC 03/07 IV PUSH 03/07 1216 1225 Diltiazem HCl 125 MG ONCE ONE 03/07 1215 DC 03/07 Sodium Chloride 100 ML IV 03/08 0044 1225 Diltiazem HCl 0 .STK-MED ONE 03/07 1213 DC IV Diltiazem HCl 0 .STK-MED ONE 03/07 1213 DC .ROUTE Enoxaparin Sodium 0 .STK-MED ONE 03/07 1804 DC SC Enoxaparin Sodium 40 MG DAILY 03/07 1705 AC 03/07 SC 1813 Ibuprofen 600 MG Q6P PRN 03/07 1715 AC PO Oxycodone/ 2 TAB Q6P PRN 03/07 1715 AC Acetaminophen PO Results Last 48 Hrs of Labs/Mics: Laboratory Tests 03/08/17 0553: Anion Gap 6, Estimated GFR > 60, BUN/Creatinine Ratio 13.3, Phosphorus 3.5, Magnesium 2.1, CBC w Diff NO MAN DIFF REQ, RBC 4.42 L, MCV 92.5, MCH 31.8 H, RDW 13.7, MPV 7.3 L, Gran % 50.8, Lymphocytes % 42.3, Monocytes % 4.2, Eosinophils % 2.3, Basophils % 0.4, Absolute Granulocytes 3.1, Absolute Lymphocytes 2.6, Absolute Monocytes 0.3, Absolute Eosinophils 0.1, Absolute Basophils 0, PUBS MCHC 34.4 03/08/17 0030: Troponin I < 0.01 03/07/17 1804: Troponin I < 0.01 03/07/17 1153: Anion Gap 8, Estimated GFR > 60, BUN/Creatinine Ratio 10.0, Glucose 153 H, Calcium 9.4, Phosphorus 2.4 L, Magnesium 2.0, Total Bilirubin 1.1, AST 26, ALT 38, Alkaline Phosphatase 72, Troponin I < 0.01, Total Protein 6.4, Albumin 4.1, Globulin 2.3, Albumin/Globulin Ratio 1.8, Triglycerides 152 H, Cholesterol 226 H, LDL Cholesterol, Calc 131 H, HDL Cholesterol 65 H, Cholesterol/HDL Ratio 3, TSH 1.670, Free T4 1.12, PT 10.5, INR 1.00, CBC w Diff NO MAN DIFF REQ, RBC 5.03 , MCV 92.9, MCH 31.8 H, RDW 13.8, MPV 7.7, Gran % 59.8, Lymphocytes % 33.4, Monocytes % 5.5, Eosinophils % 0.8, Basophils % 0.5, Absolute Granulocytes 4.5, Absolute Lymphocytes 2.5, Absolute Monocytes 0.4, Absolute Eosinophils 0.1, Absolute Basophils 0, PUBS MCHC 34.2, Serum Alcohol < 10.0 Assessment/Plan Assessment/Plan 1. Atrial fibrillation with rapid ventricular rate - 57 year old male with new onset atrial fibrillation and prior history of PAF. CHADSVAS score 0. No obvious precipitating factors. 2. HLD 3. Murmur The patient has reverted to normal sinus rhythm. We have discussed options including maintenance of his current regimen, antiarrhythmic medications as well as ablation. His minimal overall atrial fibrillation burden, we will discharge him to home today with further outpatient follow-up and titration of his antihypertensive medication regimen. Further discussion for treatment of atrial fibrillation will be made as an outpatient. Continue telemetry? No
--- NOTE | 2017-03-08 10:31 | Patient Discharge Instructions ---
Discharge Instructions General Discharge Information You were seen/treated for: - Atrial fibrillation with rapid ventricular rate. Special Instructions: Please follow up with your primary care physican in one week. Please follow up with your lpta in one week. Diet Recommended Diet: Heart Healthy Activity Activity Self Limited: Yes Acute Coronary Syndrome Inclusion Criteria At DC or during hospital stay patient has or had the following: ACS DIAGNOSIS No Discharge Core Measures Meds if any: Prescribed or Continued at Discharge Meds if any: NOT Prescribed or Continued at Discharge Congestive Heart Failure Inclusion Criteria At DC or during hospital stay patient has or had the following: CHF DIAGNOSIS No Discharge Core Measures Meds if any: Prescribed or Continued at Discharge Meds if any: NOT Prescribed or Continued at Discharge Cerebrovascular accident Inclusion Criteria At DC or during hospital stay patient has or had the following: CVA/TIA Diagnosis No Discharge Core Measures Meds if any: Prescribed or Continued at Discharge Meds if any: NOT Prescribed or Continued at Discharge Venous thromboembolism Inclusion Criteria VTE Diagnosis No VTE Type NONE VTE Confirmed by (Test) NONE Discharge Core Measures - Per Current guidelines, there needs to be overlap - treatment for the first 5 days of Warfarin therapy. - If discharged on Warfarin prior to 5 days of - overlap therapy, the patient will need to be - assessed for post discharge needs including - *Post discharge parental anticoagulation - *Warfarin and/or parental anticoagulation education - *Follow up date to check INR post discharge At least 5 days overlap therapy as Inpatient No Meds if any: Prescribed or Continued at Discharge Note: Overlap Therapy is Warfarin and Anticoagulant Meds if any: NOT Prescribed or Continued at Discharge
--- NOTE | 2017-03-10 11:57 | Discharge Summary ---
Visit Information Visit Dates Admission Date: 03/07/17 Discharge Date: 03/08/17 Hospital Course Course Attending Physician: JEREMIAS DUQUE,CARMEN Primary Care Physician: SB DUQUE,[facility] Course: 57-year-old male with past medical history significant for paroxysmal atrial fibrillation on cardizem and not on anticoagulants presented to [facility] emergency department this afternoon with chief complaint of palpitations since morning. Vitals on admission, BP: 175/114, tachycardic to 170's, RR: 20, saturaing 96% on RA. Labs pertinent for normal H&H: 16.0/46.7, platelet [id number], WBC: 7500. Serum chemistries showed NA: 139, K: 4.1, BUN: 108, bun: 9, Cr: 0.9, low phos: 2.4, 1st set of trop < 0.01. He was given an IV cardizem push and started on cardizem drip, with subsequent conversion to NSR overnight, after which the drip was switched off. He was admitted to Telemetry and the following problems were addressed: #Afib with RVR Most likely 2/2 stress. He was started on IV Cardizem and he reverted ami NSR. His home dose of Cardizem 120mg ER was resumed. His CHADSVASC was 0, and so he was not started on AC for now. he is to get an Echo as an outpatient. #Dyslipidemia - His ASCVD is 6.0%. He was advised diet and lifestyle modification. He will need a reepeat lipid panel in 3-6 months, and if still no improvement, will cosniderstarting him on moderate intensity statin. Complications: None Allergies: Coded Allergies: meperidine (From DEMEROL) (Intermediate, VOMITING 03/07/17) Significant Procedures: None Disposition Summary Disposition Principal Diagnosis: Afib with RVR Hyperlipidemia Additional Diagnosis: NONE Discharge Disposition: home or self care Discharge Instructions General Discharge Information Code Status: Full Code Patient's Diet: Heart Healthy Patient's Activity: As tolerated Follow-Up Instructions/Appts: Please follow up with your primary care physican in one week. Please follow up with your second mate in one week. Medications at Discharge Discharge Medications: Continue taking these medications: Diltiazem HCl (Diltiazem 24HR ER) 120 MG CAP.ER.24H 1 Capsule ORAL DAILY Qty = 5 Aspirin (Aspirin*) 81 MG TAB.CHEW 1 Tablet ORAL DAILY Copies To: SB DUQUE,JIGAR MCDOWELL MD,CARMEN Attending MD Review Statement Documenting Attending: ERIC MANZO MD
== END 2017-03-08 10:50 | DRG 310 ==
LOC: ERH 11:51 → ERHI 15:24
PROVIDERS: Hospitalist; Physician Assistant Medical; ADMIT Specialist
DX: I48.0 Paroxysmal atrial fibrillation (principal); E78.5 Hyperlipidemia, unspecified; Z87.891 Personal history of nicotine dependence; R01.1 Cardiac murmur, unspecified; F10.20 Alcohol dependence, uncomplicated
CPT/HCPCS: ERO; 82436; 93005; 93010; 96374; 99291; G0480; J1650; J3490